=== PATIENT | female | born 1990 | race Hispanic/Latino ===

== ENCOUNTER 2016-08-31 18:45 | Emergency (ER) | payer SELFPAY ==
[~2016-08-31] VITALS: Ht 167.6 cm; Wt 61.3 kg
[~2016-08-31 18:45] MED LIST: AUGMENTIN500 MG PO; COLACE100 MG PO; FIORICET,ESG1 TABLET PO; NORCO 5/3251 TABLET PO; REGLAN10 MG PO; TRAMADOL HCL50 MG PO
[2016-08-31] MEDS ORDERED: PRENATAL FORMU1 EAC3 PO (20:46)
[2016-08-31] MEDS ORDERED: ZOFRAN ODT4 MG PO (20:46)
[2016-08-31 21:27] VITALS: BP 111/75
== END 2016-08-31 21:28 | disposition home or self-care (01) ==
LOC: RME 18:45 → EME 18:45 → RME 21:28
DX: Z32.01 Encounter for pregnancy test, result positive (principal); Z3A.00 Weeks of gestation of pregnancy not specified
CPT/HCPCS: 84702; 99281; 99284

== ENCOUNTER → 2016-09-09 | Outpatient (CLI) | payer SELFPAY ==
[~2016-09-09] MED LIST changes: +PRENATAL FORMU1 EAC3 PO; +ZOFRAN ODT4 MG PO
== END | disposition home or self-care (01) ==
LOC: RAD 09:38
DX: O36.80X0 Pregnancy with inconclusive fetal viability, not applicable or unspecified (principal); Z3A.01 Less than 8 weeks gestation of pregnancy
CPT/HCPCS: 76801